=== PATIENT | female | born 1950 | race Caucasian/White ===

== ENCOUNTER 2021-04-19 13:22 | Inpatient (IN) ==
[2021-04-19] MEDS ORDERED: cefOXitin 2,000 MG in Water for inj. (sterile) 10 ML IVP ONE (13:46)
[2021-04-19] MEDS ORDERED: Lidocaine HCL 4 ML Topical Solution (Laryng-O-Jet Kit Sterile Pak) TP ONE (13:47)
[2021-04-19] MEDS ORDERED: Ondansetron 4 MG/2 ML VIAL ONE (13:47)
[2021-04-19] MEDS ORDERED: *HR* Rocuronium Bromide 50 MG/5 ML VIAL ONE ×2 (13:47→16:00)
[2021-04-19] MEDS ORDERED: Lidocaine -MPF 2% 5 ML VIAL ONE (13:47)
[2021-04-19] MEDS ORDERED: *HR* FentaNYL (PF) 100 MCG/2 ML VIAL ONE (13:47)
[2021-04-19] MEDS ORDERED: *HR* Propofol 200 MG/20 ML VIAL IVP ONE (13:47)
[2021-04-19] MEDS ORDERED: Ringers Solution, Lactated 1,000 ML IVC SCH (14:00)
[2021-04-19] MEDS ORDERED: *HR* Labetalol 20 MG/4 ML SYRINGE IVP PRN (14:22)
[2021-04-19] MEDS ORDERED: *HR* HYDROmorphone PF 0.5 MG/0.5 ML SYRINGE IVP PRN (14:22)
[2021-04-19] MEDS ORDERED: Acetaminophen IV 1,000 MG/100 ML BAG IVPB ONE (14:22)
[2021-04-19] MEDS ORDERED: *HR* HYDROmorphone 2 MG TABLET PO PRN (14:22)
[2021-04-19] MEDS ORDERED: Famotidine 20 MG/2 ML VIAL IVP ONE (14:22)
[2021-04-19] MEDS ORDERED: *HR* OxyCODONE Immed Rel 5 MG TABLET PO PRN (14:22)
[2021-04-19 15:17] LABS: Basophils % 0.4 %; Eosinophils # 0.5 K/mcL (0.0-0.6); Eosinophils % 5.9 %; Hematocrit 29.6 % (35.3-44.9); Hemoglobin 9.2 g/dL (11.5-15.4); Immature Granulocytes % 0.7 % (0-4); Lymphocytes # 2.3 K/mcL (0.6-4.6); Lymphocytes % 25.1 %; Mean Corpuscular HGB Conc 31.1 g/dL (31.6-35.5); Mean Corpuscular Hemoglobin 28.8 pg (28.0-33.3); Mean Corpuscular Volume 92.5 fL (83.0-100.0); Mean Platelet Volume 9.3 fL (9.4-12.4); Monocytes # 0.7 K/mcL (0.0-1.3); Monocytes % 7.3 %; Neutrophils # 5.6 K/mcL (1.6-8.9); Platelet Count 360 K/mcL (140-400); Red Cell Distribution Width 15.5 % (11.5-14.5); Segmented Neutrophils % 60.6 %; White Blood Count 9.2 K/mcL (4.3-11.1)
[2021-04-19 15:26] LABS: INR 1.1; Prothrombin Time 11.7 Seconds (9.4-12.1)
[2021-04-19 15:45] LABS: Calcium 8.9 mg/dL (8.6-10.3); Potassium 3.6 mEq/L (3.5-5.1)
[2021-04-19] MEDS ORDERED: Fluconazole 200 MG/100 ML 200 MG/100 ML BAG IVPB ONE (15:46)
[2021-04-19] MEDS ORDERED: *HR* HYDROMORPHONE 2 MG/ML VIAL ONE (15:58)
[2021-04-19] MEDS ORDERED: Albumin Human 5% 12.5 GM/250 ML IV.SOLN ONE (16:22)
[2021-04-19] MEDS ORDERED: Naloxone 0.4 MG/ML INJ IVP PRN (19:04)
[2021-04-19] MEDS ORDERED: *HR* Dextrose 50 % in Water (Syg) 50 ML SYRINGE IVP PRN (19:04)
[2021-04-19] MEDS ORDERED: Dextrose Gel 15 GM/37.5 ML TUBE PO PRN ×2 (19:04)
[2021-04-19] MEDS ORDERED: D5% in Water 1,000 ML IVC PRN (19:04)
[2021-04-19] MEDS ORDERED: *HR* OxyCODONE Oral Soln 5 MG/5 ML UD.LIQ PO PRN (19:04)
[2021-04-19] MEDS ORDERED: *HR* Metoprolol 5 MG/5 ML VIAL IVP PRN (19:04)
[2021-04-19] MEDS ORDERED: Ondansetron 4 MG/2 ML VIAL IVP PRN (19:04)
[2021-04-19] MEDS: 0.9 % Sodium Chloride 1,000 ML IVC SCH (20:40)
[2021-04-19] MEDS: *HR* Metoprolol 5 MG/5 ML VIAL IVP SCH (20:42)
[2021-04-19] MEDS: Acetaminophen IV 1,000 MG/100 ML BAG IVPB SCH (20:43)
[2021-04-19] MEDS: Latanoprost 2.5 ML BOTTLE BOTH EYES SCH (20:44)
[2021-04-19] MEDS: Insulin LISPRO 300 UNITS/3 ML VIAL SUBQ SCH (20:45)
[2021-04-20] MEDS: *HR* Metoprolol 5 MG/5 ML VIAL IVP SCH ×2 (00:16→05:47)
[2021-04-20] MEDS: Piperacillin/Tazobactam 3.375 GM in 0.9 % Sodium Chloride Mini Bag 100 ML IVPB SCH ×4 (00:18→23:42)
[2021-04-20] MEDS: Insulin LISPRO 300 UNITS/3 ML VIAL SUBQ SCH ×4 (00:47→17:38)
[2021-04-20] MEDS: Acetaminophen IV 1,000 MG/100 ML BAG IVPB SCH ×5 (00:56→23:42)
[2021-04-20] MEDS: 0.9 % Sodium Chloride 1,000 ML IVC SCH ×3 (03:13→20:20)
[2021-04-20] MEDS ORDERED: *HR* OxyCODONE Immed Rel 5 MG TABLET PO PRN (08:12)
[2021-04-20] MEDS: allopurinoL 300 MG TABLET PO SCH (08:44)
[2021-04-20] MEDS: Metoprolol XL (24 HR) Succ 50 MG TAB.ER.24H PO SCH (08:44)
[2021-04-20] MEDS: amLODIPine 5 MG TABLET PO SCH (08:44)
[2021-04-20] MEDS ORDERED: Pantoprazole 40 MG VIAL IVP SCH (09:00)
[2021-04-20 09:06] LABS: Calcium 7.6 mg/dL (8.6-10.3); Magnesium 1.3 mg/dL (1.6-2.6); Phosphorous 4.7 mg/dL (2.7-4.5); Potassium 4.3 mEq/L (3.5-5.1)
[2021-04-20 09:17] LABS: Carcinoembryonic Antigen 7.7 ng/mL (Less than 5.0)
[2021-04-20] MEDS ORDERED: Lidocaine -MPF 1% 5 ML AMPUL INFILT ONE (09:53)
[2021-04-20] MEDS: Nystatin POWDER 30 GM BOTTLE TP SCH ×2 (11:47→20:10)
[2021-04-20 17:57] LABS: Basophils % 0.2 %; Eosinophils % 0.1 %; Hematocrit 24.9 % (35.3-44.9); Immature Granulocytes % 0.7 % (0-4); Lymphocytes # 1.8 K/mcL (0.6-4.6); Lymphocytes % 13.9 %; Mean Corpuscular HGB Conc 30.1 g/dL (31.6-35.5); Mean Corpuscular Volume 96.1 fL (83.0-100.0); Mean Platelet Volume 9.7 fL (9.4-12.4); Monocytes # 1.4 K/mcL (0.0-1.3); Monocytes % 10.4 %; Neutrophils # 9.7 K/mcL (1.6-8.9); Platelet Count 364 K/mcL (140-400); Red Blood Count 2.59 M/mcL (3.82-4.97); Red Cell Distribution Width 15.6 % (11.5-14.5); Segmented Neutrophils % 74.7 %
[2021-04-20 17:58] LABS: Hemoglobin 7.5 g/dL (11.5-15.4)
[2021-04-20] MEDS: Latanoprost 2.5 ML BOTTLE BOTH EYES SCH (20:08)
[2021-04-20] MEDS: Magnesium Oxide 400 MG TABLET PO SCH (20:10)
[2021-04-21] MEDS: Insulin LISPRO 300 UNITS/3 ML VIAL SUBQ SCH ×5 (00:43→23:47)
[2021-04-21] MEDS: Acetaminophen IV 1,000 MG/100 ML BAG IVPB SCH (05:28)
[2021-04-21 06:35] LABS: Basophils % 0.2 %; Eosinophils # 0.1 K/mcL (0.0-0.6); Eosinophils % 0.9 %; Hematocrit 23.8 % (35.3-44.9); Hemoglobin 7.1 g/dL (11.5-15.4); Immature Granulocytes % 0.6 % (0-4); Lymphocytes # 2.5 K/mcL (0.6-4.6); Lymphocytes % 19.6 %; Mean Corpuscular HGB Conc 29.8 g/dL (31.6-35.5); Mean Corpuscular Hemoglobin 28.6 pg (28.0-33.3); Mean Platelet Volume 10.6 fL (9.4-12.4); Monocytes # 1.2 K/mcL (0.0-1.3); Monocytes % 9.5 %; Platelet Count 316 K/mcL (140-400); Red Blood Count 2.48 M/mcL (3.82-4.97); Red Cell Distribution Width 15.8 % (11.5-14.5); Segmented Neutrophils % 69.2 %
[2021-04-21 06:51] LABS: Calcium 7.8 mg/dL (8.6-10.3); Magnesium 1.4 mg/dL (1.6-2.6); Phosphorous 3.4 mg/dL (2.7-4.5); Potassium 4.1 mEq/L (3.5-5.1)
[2021-04-21] MEDS ORDERED: *HR* OxyCODONE/APAP 5/325 TABLET PO PRN (07:55)
[2021-04-21] MEDS ORDERED: Acetaminophen 325 MG TABLET PO PRN (07:56)
[2021-04-21] MEDS: allopurinoL 300 MG TABLET PO SCH (08:59)
[2021-04-21] MEDS ORDERED: NON-FORMULARY MEDICATION 1 EACH EACH (Metoprolol Succinate [Toprol Xl] 100 MG Tab.Er.24h) PO SCH (09:00)
[2021-04-21] MEDS ORDERED: 0.9 % Sodium Chloride 250 ML ONE (09:03)
[2021-04-21] MEDS: Bumetanide 1 MG TABLET PO SCH ×2 (09:04→16:13)
[2021-04-21] MEDS: Piperacillin/Tazobactam 3.375 GM in 0.9 % Sodium Chloride Mini Bag 100 ML IVPB SCH ×3 (09:05→23:25)
[2021-04-21] MEDS: amLODIPine 5 MG TABLET PO SCH (09:07)
[2021-04-21] MEDS: Metoprolol XL (24 HR) Succ 50 MG TAB.ER.24H PO SCH (09:07)
[2021-04-21] MEDS: Nystatin POWDER 30 GM BOTTLE TP SCH ×2 (09:11→20:37)
[2021-04-21] MEDS: Magnesium Oxide 400 MG TABLET PO SCH (09:13)
[2021-04-21] MEDS ORDERED: *HR* HYDROcodone/Acet 5/325 mg TABLET PO PRN (13:23)
[2021-04-21] MEDS ORDERED: Furosemide 20 MG/2 ML VIAL IVP ONE (15:48)
[2021-04-21] MEDS: Latanoprost 2.5 ML BOTTLE BOTH EYES SCH (20:38)
[2021-04-22 04:15] LABS: Basophils % 0.1 %; Eosinophils # 0.5 K/mcL (0.0-0.6); Eosinophils % 3.4 %; Hematocrit 27.7 % (35.3-44.9); Hemoglobin 8.6 g/dL (11.5-15.4); Lymphocytes # 2.2 K/mcL (0.6-4.6); Lymphocytes % 14.8 %; Mean Corpuscular Hemoglobin 28.6 pg (28.0-33.3); Mean Platelet Volume 9.4 fL (9.4-12.4); Monocytes # 1.2 K/mcL (0.0-1.3); Neutrophils # 10.7 K/mcL (1.6-8.9); Platelet Count 339 K/mcL (140-400); Red Blood Count 3.01 M/mcL (3.82-4.97); Red Cell Distribution Width 16.3 % (11.5-14.5); Segmented Neutrophils % 72.7 %; White Blood Count 14.6 K/mcL (4.3-11.1)
[2021-04-22 05:22] LABS: Calcium 7.9 mg/dL (8.6-10.3); Phosphorous 3.9 mg/dL (2.7-4.5); Potassium 3.9 mEq/L (3.5-5.1)
[2021-04-22] MEDS: Insulin LISPRO 300 UNITS/3 ML VIAL SUBQ SCH ×4 (05:43→23:55)
[2021-04-22] MEDS: amLODIPine 5 MG TABLET PO SCH (08:48)
[2021-04-22] MEDS: Metoprolol XL (24 HR) Succ 50 MG TAB.ER.24H PO SCH (08:48)
[2021-04-22] MEDS: allopurinoL 300 MG TABLET PO SCH (08:48)
[2021-04-22] MEDS: Piperacillin/Tazobactam 3.375 GM in 0.9 % Sodium Chloride Mini Bag 100 ML IVPB SCH ×3 (08:49→23:31)
[2021-04-22] MEDS: Bumetanide 1 MG TABLET PO SCH ×2 (08:49→16:33)
[2021-04-22] MEDS: Nystatin POWDER 30 GM BOTTLE TP SCH ×2 (08:49→20:33)
[2021-04-22] MEDS: Latanoprost 2.5 ML BOTTLE BOTH EYES SCH (20:33)
[2021-04-23 03:48] LABS: Basophils % 0.3 %; Eosinophils # 0.9 K/mcL (0.0-0.6); Hematocrit 26.1 % (35.3-44.9); Immature Granulocytes % 0.8 % (0-4); Lymphocytes # 2.3 K/mcL (0.6-4.6); Lymphocytes % 18.6 %; Mean Corpuscular HGB Conc 30.7 g/dL (31.6-35.5); Mean Corpuscular Hemoglobin 28.5 pg (28.0-33.3); Mean Corpuscular Volume 92.9 fL (83.0-100.0); Mean Platelet Volume 9.7 fL (9.4-12.4); Platelet Count 315 K/mcL (140-400); Red Blood Count 2.81 M/mcL (3.82-4.97); Red Cell Distribution Width 16.1 % (11.5-14.5); Segmented Neutrophils % 65.3 %; White Blood Count 12.2 K/mcL (4.3-11.1)
[2021-04-23 03:59] LABS: Calcium 7.8 mg/dL (8.6-10.3); Potassium 3.5 mEq/L (3.5-5.1)
[2021-04-23] MEDS: Insulin LISPRO 300 UNITS/3 ML VIAL SUBQ SCH ×4 (05:55→23:10)
[2021-04-23] MEDS: amLODIPine 5 MG TABLET PO SCH (08:29)
[2021-04-23] MEDS: Metoprolol XL (24 HR) Succ 50 MG TAB.ER.24H PO SCH (08:29)
[2021-04-23] MEDS: allopurinoL 300 MG TABLET PO SCH (08:29)
[2021-04-23] MEDS: Bumetanide 1 MG TABLET PO SCH ×2 (08:29→15:41)
[2021-04-23] MEDS: Piperacillin/Tazobactam 3.375 GM in 0.9 % Sodium Chloride Mini Bag 100 ML IVPB SCH ×3 (08:30→23:26)
[2021-04-23] MEDS: Nystatin POWDER 30 GM BOTTLE TP SCH ×2 (12:26→20:24)
[2021-04-23] MEDS: Latanoprost 2.5 ML BOTTLE BOTH EYES SCH (20:24)
[2021-04-24 05:06] LABS: Basophils % 0.3 %; Eosinophils # 0.8 K/mcL (0.0-0.6); Eosinophils % 8.4 %; Hematocrit 25.2 % (35.3-44.9); Hemoglobin 7.9 g/dL (11.5-15.4); Immature Granulocytes % 1.2 % (0-4); Lymphocytes % 19.8 %; Mean Corpuscular HGB Conc 31.3 g/dL (31.6-35.5); Mean Corpuscular Hemoglobin 28.7 pg (28.0-33.3); Mean Corpuscular Volume 91.6 fL (83.0-100.0); Mean Platelet Volume 9.4 fL (9.4-12.4); Monocytes # 0.9 K/mcL (0.0-1.3); Monocytes % 8.6 %; Neutrophils # 6.2 K/mcL (1.6-8.9); Platelet Count 330 K/mcL (140-400); Red Blood Count 2.75 M/mcL (3.82-4.97); Red Cell Distribution Width 15.8 % (11.5-14.5); Segmented Neutrophils % 61.7 %
[2021-04-24 05:27] LABS: Calcium 8.1 mg/dL (8.6-10.3); Potassium 3.4 mEq/L (3.5-5.1)
[2021-04-24] MEDS: Insulin LISPRO 300 UNITS/3 ML VIAL SUBQ SCH ×3 (05:45→17:41)
[2021-04-24] MEDS: Bumetanide 1 MG TABLET PO SCH ×2 (09:20→17:40)
[2021-04-24] MEDS: allopurinoL 300 MG TABLET PO SCH (09:20)
[2021-04-24] MEDS: Nystatin POWDER 30 GM BOTTLE TP SCH (09:20)
[2021-04-24] MEDS: amLODIPine 5 MG TABLET PO SCH (09:20)
[2021-04-24] MEDS: Metoprolol XL (24 HR) Succ 50 MG TAB.ER.24H PO SCH (09:20)
[2021-04-24 13:37] LABS: Adenovirus Not Detected (Not Detect); Bordetella Pertussis Not Detected (Not Detect); Chlamydophila pneumoniae Not Detected (Not Detect); Coronavirus 229E Not Detected (Not Detect); Coronavirus HKU1 Not Detected (Not Detect); Coronavirus NL63 Not Detected (Not Detect); Coronavirus OC43 Not Detected (Not Detect); Human Metapneumovirus Not Detected (Not Detect); Human Rhinovirus/Enterovirus Not Detected (Not Detect); Influenza A Subtype 2009 H1 Not Detected (Not Detect); Influenza B Not Detected (Not Detect); Mycoplasma pneumoniae Not Detected (Not Detect); Parainfluenza Virus 1 Not Detected (Not Detect); Parainfluenza Virus 2 Not Detected (Not Detect); Parainfluenza Virus 3 Not Detected (Not Detect); Parainfluenza Virus 4 Not Detected (Not Detect); Respiratory Syncytial Virus Not Detected (Not Detect); SARS-CoV-2 Not Detected (Not Detect)
[2021-04-24 14:04] VITALS: BP 144/78; PULSE 92; TEMP 97.8; O2SAT 97
== END 2021-04-24 18:20 | DRG 330 ==
LOC: SAMDAY 13:22 → 3ANU 18:58
PROVIDERS: ADMIT Surgery; ATTEND Surgery